=== PATIENT | female | born 1955 | race Caucasian/White ===

== ENCOUNTER 2017-03-26 06:42 | Emergency (ER) | payer MEDICARE ==
[~2017-03-26] VITALS: Ht 157.5 cm; Wt 62.7 kg
[~2017-03-26 06:42] MED LIST: ALBU8.5H2 IH; ATOM40 PO; DESV50TA PO; ESTR0.9T PO; FLUT16SP NS; HYDR50TA76 PO; LEVO150T5 PO; LEVO500T79 PO; LOSA100T29 PO; OXYC5TAB72 PO; PANT40TA2 PO; SIMV40TA5 PO; SPIR25TA3 PO; SUMA100T2 PO
[2017-03-26 06:45] VITALS: BP 161/94; RESP 16; O2SAT 100
--- NOTE | 2017-03-26 06:51 | ED.REPORT ---
HPI-Sore Throat ONLY HPI/PE done March 26, 2017 ED Provider: Wilson Powers MD 62 year old female with a history of seasonal allergies and sinus surgery presents to the ER complaining of two weeks of right ear pain, worsening today. Pain prevented patient from sleeping last night. She has attempted to clear the affected ear with peroxide solution and warm oils. Symptoms have also been treated with antihistamines and gargling warm salt water. Associated symptoms include sore throat, cough, nausea, and chills. Patient denies rhinorrhea, and history of ear infections or obstructions. Nursing Notes Stated Complaint: EAR,THROAT PAIN Chief Complaint: ENT & Mouth Nursing Notes Reviewed: Yes Allergies: Coded Allergies: Penicillins (Verified Allergy, Severe, anaphylaxis, 03/26/17) Adhesives (Verified Allergy, Intermediate, Rash and bleeding, 03/26/17) Sulfa (Sulfonamide Antibiotics) (Verified Allergy, Intermediate, vomiting , 03/26/17) morphine (Verified Allergy, Intermediate, Itching, 03/26/17) tramadol (Unverified Allergy, Intermediate, Rash, 03/26/17) carbamazepine (Verified Allergy, Unknown, 03/26/17) cefuroxime (Verified Allergy, Unknown, 03/26/17) divalproex sodium (Verified Allergy, Unknown, 03/26/17) doxycycline (Verified Allergy, Unknown, 03/26/17) ketorolac (Verified Allergy, Unknown, rash, 03/26/17) lisinopril (Verified Allergy, Unknown, 03/26/17) lithium (Verified Allergy, Unknown, 03/26/17) methocarbamol (Verified Allergy, Unknown, 03/26/17) nitrofurantoin (Verified Allergy, Unknown, 03/26/17) risperidone (Verified Allergy, Unknown, 03/26/17) tiotropium (Verified Allergy, Unknown, 03/26/17) azithromycin (Verified Adverse Reaction, Intermediate, Nausea,Vomiting, ) Uncoded Allergies: MYCIN (Allergy, Unknown, 04/16/15) Scheduled Atomoxetine (Strattera) 40 Mg Capsule 40 MG PO DAILY Azithromycin (Zithromax (Z-Jackson)) 250 Mg Tablet 250 MG PO DIRECTED Take two tablets by mouth on day 1, then take one tablet daily on days 2 through 5. Desvenlafaxine Succinate ER (Pristiq ER) 50 Mg Tab.er.24h 50 MG PO DAILY Estrogens, Conjugated (Premarin) 0.9 Mg Tablet 0.9 MG PO DAILY Fluconazole (Fluconazole) 150 Mg Tablet 150 MG PO ONCE Hydroxyzine HCl (HydrOXYzine Hcl) 50 Mg Tablet 50 MG PO QID Levofloxacin (Levofloxacin) 500 Mg Tablet 500 MG PO DAILY Levofloxacin (Levaquin) 750 Mg Tablet 750 MG PO DAILY Levothyroxine (Levothyroxine) 150 Mcg Tablet 150 MCG PO DAILY Losartan Potassium (Losartan Potassium) 100 Mg Tablet 100 MG PO DAILY Pantoprazole DR (Protonix) 40 Mg Tablet 40 MG PO DAILY Simvastatin (Simvastatin) 40 Mg Tablet 40 MG PO HS Spironolactone (Spironolactone) 25 Mg Tablet 25 MG PO DAILY Scheduled PRN Albuterol HFA (Proair HFA) 8.5 Gm Hfa.aer.ad 2 PUFFS IH Q4 PRN PRN For Shortness of Breath Fluticasone Propionate (Fluticasone Propionate Nasal) 16 Gm [place].susp 2 SPRAY NS BID PRN PRN For Congestion Hydrocodone-Acetaminophen 5-325 mg (Hydrocodone-Acetaminophen 5-325 mg) 1 Each Tablet 1 TABLET PO Q4H PRN PRN For Pain Sumatriptan Succinate (Sumatriptan Succinate) 100 Mg Tablet 100 MG PO PRN PRN PRN migraine oxyCODONE (oxyCODONE) 5 Mg Tablet 5 MG PO TID PRN PRN For Pain General Time Seen by MD: 06:48 Chief Complaint Other (Right Ear Pain) Hx Obtained From: Patient Arrived By: Walk-in Onset Occurred: More than a week ago... (2 weeks) Symptom Duration: Since onset Associated with: Reports: Chills Additional Notes: Sore throat Pertinent Negative: Pt denies other symptoms Past Medical History Past Medical History Sinus problems DJD Polycystic kidney disease Anemia Periorbital fracture (04/21/15) Reflux esophagitis Fibromyalgia Reports: Hyperlipidemia Past Surgical History Sinus surgery Periorbital fracture surgery Family History Noncontributory Smoking History Never Smoker Social History Alcohol Use: Denies alcohol use Drug Use: Denies drug use Other Social History: Local resident Ambulatory Status Independent Review of Systems Constitutional: Reports: Chills, Malaise Ears / Nose / Throat: Reports: Earache right, Sore throat, Denies: Ear drainage right Respiratory: Reports: Non-productive cough GI: Reports: Nausea, Denies: Abdominal pain, Constipation, Diarrhea, Vomiting Complete sys rev & neg: except as marked. Physical Exam Initial Vital Signs Vital Signs (First) Date Time Temp Pulse Resp B/P Pulse Ox O2 Delivery O2 Flow Rate FiO2 03/26/17 06:45 36.4 78 16 161/94 100 Room Air Initial VS: Reviewed Head / Eyes: Atraumatic, Normocephalic Abdomen / GI: Soft, Non-tender, No guarding, No rebound, No distention Extremities: Vascular intact, Neuro intact, No swelling, No tenderness Skin: Warm, Dry, No cyanosis Neurologic: Alert, Oriented, Nonfocal General/Constitutional: Awake, Alert ENT: Airway patent, Mucous membranes moist, Pharynx NL, No peritonsillar abscess, Tympanic membs NL, Ext aud canal NL Right TM effusion, mild erythema at the base. Neck: Atraumatic, Supple, Full range of motion, No midline vertebral tend, Thyroid NL, No tracheal deviation Re-Eval/Medical Decision Med Decision/Clinical Course Right acute otitis media. Antibiotics as above. Return precautions given follow-up primary doctor. Re-Evaluation/Progress : Re-Evaluation/Progress Note: Discussed physical examination results and plan to discharge. Patient is amenable to the plan. Return precautions given. All other questions addressed. Counseled Regarding: Diagnosis, Need for follow-up, When/why to return to ED Discharge & Departure Primary Impression: Otitis media Disposition: Home Discharge Condition All VS Reviewed: Yes Condition: Stable Patient Instructions: Otitis Media (ED) Additional Instructions: Take the azithromycin as prescribed. It is important that you complete the entire course of this medication. Take Tylenol as directed for pain. Follow-up with your primary care provider in 1-2 days. Return to the ER if you develop any other worsening or concerning symptoms. Referrals: Angelo Restrepo DO (PCP) Yakelin Attestation Portions of this note were transcribed by Anant Land. I, Dr. Powers, personally performed the history, physical exam and medical decision-making; I reviewed and confirmed the accuracy of the information in the transcribed note. Signed by: Yakelin Walsh, 03/26/2017 at 07:17 copies to: Angelo Restrepo Ben M MD March 26, 2017 06:51 ANANT LAND March 26, 2017 06:58
[2017-03-26] MEDS ORDERED: HYDR-4003 PO (07:17)
[2017-03-26] MEDS ORDERED: AZIT250T4 PO (07:17)
[2017-03-26] MEDS ORDERED: FLUC150T3 PO (07:22)
[2017-03-26 07:32] VITALS: BP 158/96
[2017-03-26] MEDS ORDERED: LEVO750T9 PO (07:33)
== END 2017-03-26 07:44 | disposition home or self-care (01) ==
LOC: SED 06:42
DX: H66.91 Otitis media, unspecified, right ear (principal); E78.5 Hyperlipidemia, unspecified; Z79.899 Other long term (current) drug therapy; Z88.0 Allergy status to penicillin; Z88.1 Allergy status to other antibiotic agents; Z88.2 Allergy status to sulfonamides; Z88.5 Allergy status to narcotic agent; Z88.8 Allergy status to other drugs, medicaments and biological substances

== ENCOUNTER 2017-04-06 08:22 | Emergency (ER) | payer MEDICARE ==
[~2017-04-06] VITALS: Ht 157.5 cm; Wt 58.6 kg
[~2017-04-06 08:22] MED LIST changes: +AZIT250T4 PO; +FLUC150T3 PO; +HYDR-4003 PO; +LEVO750T9 PO
[2017-04-06 08:26] VITALS: BP 138/92; PULSE 99; RESP 15; O2SAT 99
--- NOTE | 2017-04-06 09:00 | ED.REPORT ---
HPI-Back Pain 40 and Over Date of Service April 06, 2017 ED Provider: Ian Salazar MD 62 year old female with a history of degenerative disc disease, fibromyalgia, and polycystic kidney disease presents to the ER complaining of acute on chronic back pain. On March 10 she had osteopathic manipulation on by Dr. Houston her primary care provider. 2 days later she noticed a "pop" in her back that was very painful in the lumbar region and over the intervening days has developed and radiated to her neck and now she has significant neck pain at this time. She says she has had frequent migraines because of the neck pain including this morning. She says she cannot eat or drink anything because of lesions in her mouth that were discovered on March 30 she says that she has lost over 10 pounds over these past 7 days because of her inability to eat. She says she has had a low-grade fever.. She also complains of that she has a right side adenoma status post hernia surgery. Patient denies bowel/urinary incontinence, focal weakness of the extremities. She says the tramadol that she normally takes is wholly ineffective to manage her pain. She says she cannot take any NSAIDs and Tylenol, which she takes regularly, is also ineffective. Nursing Notes Stated Complaint: BACK AND MOUTH PAIN Chief Complaint: Back Pain or Injury Nursing Notes Reviewed: Yes Allergies: Coded Allergies: Penicillins (Verified Allergy, Severe, anaphylaxis, 03/26/17) Adhesives (Verified Allergy, Intermediate, Rash and bleeding, 03/26/17) Sulfa (Sulfonamide Antibiotics) (Verified Allergy, Intermediate, vomiting , 03/26/17) morphine (Verified Allergy, Intermediate, Itching, 03/26/17) tramadol (Unverified Allergy, Intermediate, Rash, 03/26/17) carbamazepine (Verified Allergy, Unknown, 03/26/17) cefuroxime (Verified Allergy, Unknown, 03/26/17) divalproex sodium (Verified Allergy, Unknown, 03/26/17) doxycycline (Verified Allergy, Unknown, 03/26/17) ketorolac (Verified Allergy, Unknown, rash, 03/26/17) lisinopril (Verified Allergy, Unknown, 03/26/17) lithium (Verified Allergy, Unknown, 03/26/17) methocarbamol (Verified Allergy, Unknown, 03/26/17) nitrofurantoin (Verified Allergy, Unknown, 03/26/17) risperidone (Verified Allergy, Unknown, 03/26/17) tiotropium (Verified Allergy, Unknown, 03/26/17) azithromycin (Verified Adverse Reaction, Intermediate, Nausea,Vomiting, ) codeine (Verified Adverse Reaction, Intermediate, VOMIT, 04/06/17) Uncoded Allergies: MYCIN (Allergy, Unknown, 04/16/15) Scheduled Atomoxetine (Strattera) 40 Mg Capsule 40 MG PO DAILY Azithromycin (Zithromax (Z-Jackson)) 250 Mg Tablet 250 MG PO DIRECTED Take two tablets by mouth on day 1, then take one tablet daily on days 2 through 5. Desvenlafaxine Succinate ER (Pristiq ER) 50 Mg Tab.er.24h 50 MG PO DAILY Estrogens, Conjugated (Premarin) 0.9 Mg Tablet 0.9 MG PO DAILY Fluconazole (Fluconazole) 150 Mg Tablet 150 MG PO ONCE Hydroxyzine HCl (HydrOXYzine Hcl) 50 Mg Tablet 50 MG PO QID Levofloxacin (Levofloxacin) 500 Mg Tablet 500 MG PO DAILY Levofloxacin (Levaquin) 750 Mg Tablet 750 MG PO DAILY Levothyroxine (Levothyroxine) 150 Mcg Tablet 150 MCG PO DAILY Losartan Potassium (Losartan Potassium) 100 Mg Tablet 100 MG PO DAILY Pantoprazole DR (Protonix) 40 Mg Tablet 40 MG PO DAILY Simvastatin (Simvastatin) 40 Mg Tablet 40 MG PO HS Spironolactone (Spironolactone) 25 Mg Tablet 25 MG PO DAILY Scheduled PRN Albuterol HFA (Proair HFA) 8.5 Gm Hfa.aer.ad 2 PUFFS IH Q4 PRN PRN For Shortness of Breath Fluticasone Propionate (Fluticasone Propionate Nasal) 16 Gm [place].susp 2 SPRAY NS BID PRN PRN For Congestion Hydrocodone-Acetaminophen 5-325 mg (Hydrocodone-Acetaminophen 5-325 mg) 1 Each Tablet 1 TABLET PO Q4H PRN PRN For Pain Sumatriptan Succinate (Sumatriptan Succinate) 100 Mg Tablet 100 MG PO PRN PRN PRN migraine oxyCODONE (oxyCODONE) 5 Mg Tablet 5 MG PO TID PRN PRN For Pain General Time Seen by MD: 08:59 Chief Complaint Back pain Hx Obtained From: Patient Arrived By: Walk-in Sudden in Onset?: No Onset Occurred: More than a week ago... (3 weeks) Symptom Duration: Since onset Location: : Spinal lumbar area Quality: Painful Severity: Current: Moderate Severity: Maximum: Moderate Pertinent Negative: Pt denies other symptoms Recent Healthcare: Recent doctor visit Similar Sx Previous: Yes Past Medical History Past Medical History Sinus problems DJD Polycystic kidney disease Anemia Periorbital fracture (04/21/15) Reflux esophagitis Fibromyalgia Reports: Hyperlipidemia Past Surgical History Sinus surgery Periorbital fracture surgery Family History Noncontributory Smoking History Former Smoker Social History Alcohol Use: Denies alcohol use Drug Use: Denies drug use Other Social History: Local resident Ambulatory Status Independent Review of Systems Constitutional: Denies: Chills, Fever Musculoskeletal: Reports: Back pain, Lumbar pain, Neck pain, Denies: Extremity pain, Joint pain, Thoracic pain Neurologic: Reports: Headache, Denies: Abnormal movement, Bladder dysfunction, Bowel dysfunction, Focal weakness Complete sys rev & neg: except as marked. Physical Exam Initial Vital Signs Vital Signs (First) Date Time Temp Pulse Resp B/P Pulse Ox O2 Delivery O2 Flow Rate FiO2 04/06/17 08:26 99 15 138/92 99 Room Air Initial VS: Reviewed Head / Eyes: Atraumatic, Normocephalic Neck: Supple, Non-tender, Full range of motion Extremities: Vascular intact, Neuro intact, No swelling, No tenderness Skin: Warm, Dry, No cyanosis General/Constitutional: Awake, Alert, Well developed, Well nourished Respiratory / Chest: Breath sounds NL, Breath sounds = bilat, No respiratory distress, No rales, No rhonchi, No wheezing Cardiovascular: Heart rate NL, Regular rhythm, Heart sounds NL, No murmurs, Peripheral circulation NL Abdomen: Soft, Non-tender, No guarding, No rebound, No distention, No palpable mass, No pulsatile mass Back: Atraumatic, Inspection NL, Full range of motion, Painless range of motion , Non-tender, No midline vertebral tend, No paraspinal tenderness, No muscle spasm, Straight leg raise neg, No CVA tenderness Neurologic: Oriented X3, Speech NL, No motor deficits, No sensory deficits, CN II - XII intact Slow to move. Re-Eval/Medical Decision Med Decision/Clinical Course The patient is moderately agitated and upset. She complains bitterly of her diffuse back and neck pain. She says that her tramadol is insufficient. Given the chronicity of her chronic problems and the multitude of her symptoms, and lack of evidence of new acute abnormalities, I do not believe that new more potent narcotics are the best approach. I encouraged her to increase the tramadol to 100 mg 3 times a day and to discuss the case with her primary care doctor in the coming days. She was very pessimistic that she would be able to do so. I encouraged her to call Dr. Houston's office tomorrow morning and arrange for follow-up this week and to let me know tomorrow if she is unable to do so so that I can intervene if needed. Re-Evaluation/Progress : Re-Evaluation/Progress Note: Discussed plan to discharge. Patient is amenable to the plan. Return precautions given. All other questions addressed. Counseled Regarding: Diagnosis, Lab results, Need for follow-up, When/why to return to ED Discharge & Departure Impression: Primary Impression: Low back pain Chronicity: chronic Back pain laterality: unspecified Sciatica presence: without sciatica Qualified Code: M54.5 - Low back pain Additional Impression: Mouth ulcer Disposition: Home Discharge Condition All VS Reviewed: Yes Condition: Stable Patient Instructions: Low Back Strain (ED) Additional Instructions: No dangerous neurologic condition is suspected in association with your low back pain and upper back pain and neck pain. I recommend increase of tramadol to 100 mg 3 times a day to help control her pain until you can be seen again by Dr. Houston to help to manage this. If you cannot arrange a close follow-up when you call the clinic tomorrow, I recommend you call me back in the emergency department at [phone] and I can help you get an appointment with Dr. Houston. I tried to contact her today but there was no means by which I could do so. Regarding the mouth ulcer, I recommend this magic mouthwash I have prescribed to use a small amount to rinse around 3 or mouth before eating and before bedtime. It is okay to swallow this medication. Referrals: Jagdish Houston DO (PCP) Rosalino Hook MD, Kevin D MD Scribe Attestation Portions of this note were transcribed by Anant Dejesus. I, Dr. Salazar, personally performed the history, physical exam and medical decision-making; I reviewed and confirmed the accuracy of the information in the transcribed note. Signed by: Yakelin Walsh, 04/06/2017 at 10:54 copies to: Jagdish Houston DO; Rosalino Hook MD; Sher Rosas MD, Kirk H MD April 06, 2017 09:00 ANANT DEJESUS April 06, 2017 09:12
== END 2017-04-06 10:49 | disposition home or self-care (01) ==
LOC: SED 08:22
DX: M54.5 Low back pain (principal); X50.1XXA Overexertion from prolonged static or awkward postures, initial encounter; Y93.89 Activity, other specified; Y92.89 Other specified places as the place of occurrence of the external cause; Y99.8 Other external cause status; K12.1 Other forms of stomatitis; M54.2 Cervicalgia; K21.0 Gastro-esophageal reflux disease with esophagitis; M79.7 Fibromyalgia; E78.5 Hyperlipidemia, unspecified; Z87.891 Personal history of nicotine dependence; Z88.0 Allergy status to penicillin; Z88.1 Allergy status to other antibiotic agents; Z88.2 Allergy status to sulfonamides; Z88.5 Allergy status to narcotic agent; Z88.6 Allergy status to analgesic agent; Z88.8 Allergy status to other drugs, medicaments and biological substances; Z91.048 Other nonmedicinal substance allergy status